=== PATIENT | female | born 1980 | race Caucasian/White ===

== ENCOUNTER → 2025-02-25 09:28 | Outpatient (REF) | payer OTHER, SELFPAY | LOC: HWRCS 09:28 | PROVIDERS: ATTENDING PHYSICIAN Nurse Practitioner; FAMILY PHYSICIAN Nurse Practitioner Adult Health | DX: I25.10 Atherosclerotic heart disease of native coronary artery without angina pectoris (principal) | CPT/HCPCS: 93306 ==